=== PATIENT | male | born 1945 | race Two or more races ===

== ENCOUNTER 2025-02-06 10:30 | Inpatient (IN) | payer OTHER ==
[~2025-02-06] VITALS: Ht 208.3 cm; Wt 86.2 kg
[2025-02-06] MEDS ORDERED: XIGDUO XR 10 M1 EAC1 PO (13:19)
[2025-02-06] MEDS ORDERED: LEVOTHYROXINE25 MCG PO (13:19)
[2025-02-06] MEDS ORDERED: LOSARTAN POTASS50 MG PO (13:19)
[2025-02-06] MEDS ORDERED: ATORVASTATIN CA10 MG PO (13:20)
[2025-02-11] MEDS ORDERED: PERCOCET 5-3251 EACH PO (15:16)
[2025-02-11] MEDS ORDERED: AMOX-CLAV 875-1 EACH PO (15:17)
[2025-02-11] MEDS ORDERED: MEDROLPACK PO (15:17)
[2025-02-11] MEDS ORDERED: ZOFRAN8 MG PO (15:18)
[2025-02-11] MEDS ORDERED: COLACE100 MG PO (15:18)
[2025-02-11] MEDS ORDERED: GABAPENTIN100 M2 PO (15:18)
[2025-02-11] MEDS ORDERED: NEURONTIN800 MG PO (15:19)
[2025-02-11] MEDS ORDERED: 0.9 % SODIUM CHLORIDE 1,000 ML IV SCH (15:30)
[2025-02-11] MEDS ORDERED: PROMETHAZINE HCL 50 MG/ML AMPUL IM PRN (15:30)
[2025-02-11] MEDS ORDERED: ENALAPRILAT DIHYDRATE 1.25 MG/ML VIAL IV PRN (15:30)
[2025-02-11] MEDS ORDERED: CEFAZOLIN SODIUM 1,000 MG VIAL IV SCH (17:00)
[2025-02-11] MEDS ORDERED: METHYLPREDNISOLONE SOD SUCC 125 MG VIAL IV ONE ×2 (17:00)
[2025-02-11] MEDS ORDERED: METHYLPREDNISOLONE ACETATE 80 MG/ML VIAL IM ONE (17:00)
[2025-02-11] MEDS ORDERED: MORPHINE SULFATE 4 MG/ML CARTRIDGE IV SCH (17:00)
[2025-02-11] MEDS ORDERED: DOCUSATE SODIUM 100MG CAP PO SCH (17:00)
[2025-02-11] MEDS ORDERED: CEFAZOLIN SODIUM 1,000 MG in 0.9 % SODIUM CHLORIDE 50 ML IV SCH (17:00)
[2025-02-11] MEDS ORDERED: VANCOMYCIN HCL 1,000 MG VIAL IR ONE (17:00)
[2025-02-11] MEDS ORDERED: METHYLPREDNISOLONE SOD SUCC 125 MG VIAL IV SCH (17:00)
[2025-02-11] MEDS ORDERED: VANCOMYCIN HCL 1,000 MG VIAL IV SCH ×2 (17:00→21:00)
[2025-02-11] MEDS ORDERED: MORPHINE SULFATE 4 MG/ML VIAL IV ONE ×3 (18:30→19:30)
[2025-02-11] MEDS ORDERED: ENALAPRILAT DIHYDRATE 1.25 MG/ML VIAL IV ONE (19:00)
[2025-02-11] MEDS ORDERED: ACETAMINOPHEN 500 MG GEL..CAP PO SCH (20:00)
[2025-02-11] MEDS ORDERED: GABAPENTIN 800 MG TABLET PO SCH (21:00)
[2025-02-11 22:00] VITALS: BP 152/84; O2SAT 93
[2025-02-12] VITALS (7 sets, daily range): BP systolic 131–149; BP diastolic 81–87; O2SAT 85–100
[2025-02-12] MEDS ORDERED: SODIUM CHLORIDE 0.45 % 1,000 ML IV SCH
[2025-02-12] MEDS ORDERED: LEVOTHYROXINE SODIUM 25 MCG TABLET PO SCH (06:00)
[2025-02-12] MEDS ORDERED: OxyCODONE HCL 5 MG TABLET (ROXICODONE) PO SCH (06:01)
[2025-02-12] MEDS ORDERED: INSULIN LISPRO 1,000 UNIT/10 ML UNITS SUBCUTANEO PRN (06:30)
[2025-02-12] MEDS ORDERED: DEXTROSE 50 % IN WATER 0.5 G/ML VIAL IV PRN (06:30)
[2025-02-12 07:43] LABS: BUN CREA RATIO 19.0 (7.0-25.0); CREATININE SERUM 0.88 mg/dL (0.70-1.30); GFR 83.97; GLUCOSE FASTING 168.0 mg/dL (65-100); OSMOLALITY SERUM 281.0 MOSM/KG (275-295)
[2025-02-12 07:59] LABS: BASO % 0.1 % (0.1-1.2); EOS # 0.00 (0.04-0.54); EOS % 0.0 % (0.7-7.0); LYMPH # 0.43 (1.18-3.74); LYMPH % 3.0 % (19.3-53.1); MEAN PLATELET VOLUME 11.10 fl (9.4-12.4); MONO # 0.52 (0.24-0.82); MONO % 3.7 % (4.7-12.5); NEUT # 13.19 (1.56-6.13); NEUT % 92.6 % (34.0-71.1); RED CELL DISTRIBUTION WIDTH 13.7 % (11.6-14.4)
[2025-02-12] MEDS ORDERED: TAMSULOSIN HCL 0.4 MG CAP PO SCH (09:00)
[2025-02-12] MEDS ORDERED: LOSARTAN POTASSIUM 50 MG TABLET PO SCH (09:00)
[2025-02-12] MEDS ORDERED: ATORVASTATIN CALCIUM 10 MG TABLET PO SCH (09:00)
[2025-02-12] MEDS ORDERED: TEMAZEPAM 15 MG CAPSULE PO ONE (20:00)
[2025-02-13 00:45] VITALS: BP 124/69; O2SAT 94
[2025-02-13 01:33] VITALS: O2SAT 90
[2025-02-13 06:19] VITALS: O2SAT 90
[2025-02-13 09:24] VITALS: O2SAT 95
== END 2025-02-13 10:30 | disposition home or self-care (01) | DRG 402 ==
LOC: SURG 02-11 10:30 → O/R 02-11 10:40 → SURG 02-11 18:15
PROVIDERS: ADMIT Orthopaedic Surgery Orthopaedic Surgery of the Spine; ATTEND Orthopaedic Surgery Orthopaedic Surgery of the Spine
PROC: 0SG3071 Fusion of Lumbosacral Joint with Autologous Tissue Substitute, Posterior Approach, Posterior Column, Open Approach (ICD-10-PCS; 2025-02-11)
PROC: 0ST40ZZ Resection of Lumbosacral Disc, Open Approach (ICD-10-PCS; 2025-02-11)
PROC: 0QB30ZZ Excision of Left Pelvic Bone, Open Approach (ICD-10-PCS; 2025-02-11)
PROC: 07DR0ZZ Extraction of Iliac Bone Marrow, Open Approach (ICD-10-PCS; 2025-02-11)
PROC: 4A1104G Monitoring of Peripheral Nervous Electrical Activity, Intraoperative, Open Approach (ICD-10-PCS; 2025-02-11)
PROC: XRGD0R7 Fusion of Lumbosacral Joint using Custom-Made Anatomically Designed Interbody Fusion Device, Open Approach, New Technology Group 7 (ICD-10-PCS; principal; 2025-02-11 18:15)
PROC: 4A12X4Z Monitoring of Cardiac Electrical Activity, External Approach (ICD-10-PCS; 2025-02-12)
DX: M48.07 Spinal stenosis, lumbosacral region (principal); M43.17 Spondylolisthesis, lumbosacral region; M54.17 Radiculopathy, lumbosacral region; I10 Essential (primary) hypertension; E03.9 Hypothyroidism, unspecified